=== PATIENT | male | born 1965 | race Caucasian/White ===

== ENCOUNTER 2018-04-04 10:28 | Day surgery (SDC) | payer MEDICARE ==
[2018-04-04] MEDS ORDERED: Midazolam HCl 2 mg/2 ml Vial ONE (12:20)
[2018-04-04] MEDS ORDERED: Fentanyl 100 MCG/2 ML VIAL ONE (12:20)
[2018-04-04] MEDS ORDERED: Ketamine 50 MG/ML VIAL ONE (12:20)
[2018-04-04] MEDS ORDERED: CEFAZOLIN 2 GM/50 ML BAG ONE (12:31)
[2018-04-04 12:50] LABS: Hemoglobin 9.9 g/dL (14.0-18.0); Mean Corpuscular HGB CONC 32.2 g/dL (32.0-36.0); Mean Corpuscular Hemoglobin 31.4 pg (27.0-31.0); Mean Corpuscular Volume 97.4 fL (78.0-98.0); Mean Platelet Volume 8.7 fL (7.4-10.4); Platelet Count 171 thou/uL (130-400); RBC Distribution Width 15.4 % (11.5-14.5); Red Blood Cell (RBC) Count 3.15 mill/uL (4.70-6.10); White Blood Cell (WBC) Count 7.1 thou/uL (4.8-10.8)
[2018-04-04 13:11] LABS: Anion Gap 18 mmol/L (10-20); BUN (Urea Nitrogen) 90 mg/dL (8.4-25.7); Calc. Creatinine Clearance 0 mL/min (70-130); Calcium 7.9 mg/dL (7.8-10.44); Carbon Dioxide 19 mmol/L (22-29); Chloride 105 mmol/L (98-107); Estimated GFR-MDRD 4; Glucose 81 mg/dL (70-105); Sodium 135 mmol/L (136-145); Uric Acid 12.7 mg/dL (3.5-7.2)
[2018-04-04 13:16] LABS: Potassium 6.6 mmol/L (3.5-5.1)
--- NOTE | 2018-04-04 13:51 | OP ---
PROCEDURE: Completion amputation of right 4th and 5th digits. PREOPERATIVE DIAGNOSIS: Right partial amputation in injury to the 4th and 5th digits. POSTOPERATIVE DIAGNOSIS: Right partial amputation in injury to the 4th and 5th digits. COMPLICATIONS: None. ESTIMATED BLOOD LOSS: Minimal. SURGEON: Lamberto Call M.D. IMPLANTS: None. INDICATIONS FOR PROCEDURE: Mr. Franz is a 52-year-old male who injured his hand with a saw. His rig ht fourth and fifth digits were injured. He was indicated for partial amputation to cover his bone a nd prevent infection. Risks have been reviewed in detail. He elected to proceed with the operation. DESCRIPTION OF OPERATION: Mr. Franz was identified in the preoperative holding area. His correct ex tremity was marked. He was carried to the operating room. He was positioned supine. General anesth esia was induced. A multidisciplinary timeout was performed. The right upper extremity was prepped and draped in sterile fashion. We performed a digital block. At this point, we began with the 5th d igit. We trimmed the skin edges and removed any nonviable tissue. The distal fingertip was nonviabl e. We excisionally debrided the fingertip. We then rongeured back the bone. Most of the distal pha lanx was removed. We excised the germinal matrix of the nail bed. At this point, we thoroughly irri gated with copious lavage. We then loosely closed it with a 4-0 nylon suture in interrupted fashion. At this point, we moved to the fourth digit. We performed a similar procedure. We removed nonviable tissue sharply as well as performed an excisional debridement. We then thoroughly irrigated with co pious lavage. We removed the distal aspect of the bone back to the point where there was coverage. We then closed with a 4-0 nylon suture. A sterile dressing was applied. The patient was taken to [facility] recovery room in good condition without complication.
[2018-04-04] MEDS ORDERED: Lidocaine 1% PF 5 ML VIAL ONE (15:14)
[2018-04-04] MEDS ORDERED: PROPOFOL 200 MG/20 ML VIAL ONE (15:14)
== END 2018-04-04 14:25 | disposition home or self-care (01) ==
LOC: SDC 10:28
PROVIDERS: ATTEND Orthopaedic Surgery
PROC: 0HBQXZZ Excision of Finger Nail, External Approach (ICD-10-PCS; principal; 2018-04-04)
PROC: 0PBT0ZZ Excision of Right Finger Phalanx, Open Approach (ICD-10-PCS; 2018-04-04)
PROC: 0PBT0ZZ Excision of Right Finger Phalanx, Open Approach (ICD-10-PCS; 2018-04-04)
DX: S68.624A Partial traumatic transphalangeal amputation of right ring finger, initial encounter (principal); S68.626A Partial traumatic transphalangeal amputation of right little finger, initial encounter; Z79.899 Other long term (current) drug therapy; W27.0XXA Contact with workbench tool, initial encounter
CPT/HCPCS: 36415; 80048; 84550; 85027; J2001; J2250; J2704; J3010

== ENCOUNTER 2018-11-14 09:28 | Outpatient (CLI) | payer MEDICARE ==
--- NOTE | 2018-11-14 12:06 | ULT ---
RENAL ULTRASOUND: DATE: 11/14/2018. PROVIDED CLINICAL HISTORY: [id number]. FINDINGS: The right kidney measures approximately 9.8 x 4.6 x 5.1 cm and demonstrates multiple anechoic to hypo echoic masses, several of which demonstrate multiple internal septations. There is no evidence for h ydronephrosis. Foci of increased echogenicity involve the right kidney with associated twinkle artif act compatible with calculi. The left kidney measures approximately 10.6 x 4.3 x 6.6 cm and demonstrates no evidence for hydroneph rosis. Multiple left renal calculi are seen. Foci of diminished echogenicity involving the left kid kylah are noted with internal septations. The largest of these measures about 2.5 cm. The urinary bladder appears sonographically unremarkable. IMPRESSION: 1. Bilateral nonobstructing nephrolithiasis. 2. Bilateral renal masses, incompletely characterized sonographically, potentially reflecting comple x cysts. Consider further evaluation with CT of the abdomen with and without IV contrast. POS: [facility]
== END 2018-11-14 09:29 | disposition home or self-care (01) ==
LOC: ULT 09:28
PROVIDERS: ATTEND Internal Medicine Nephrology
DX: R31.0 Gross hematuria (principal); N20.0 Calculus of kidney; N28.89 Other specified disorders of kidney and ureter
CPT/HCPCS: 76770

== ENCOUNTER 2018-11-18 14:04 | Outpatient (CLI) | payer MEDICARE ==
[~2018-11-18 14:04] MED LIST: ISOVUE-370 76%-LOCM 1 ML ONE
--- NOTE | 2018-11-18 14:55 | CT ---
CT Abdomen W WO Con HISTORY: Patient had gross hematuria last week. Ultrasound examination showed bilateral renal lesions incompletely characterized for which CT was recommended. COMPARISON: Ultrasound examination of 11/14/2018. FINDINGS: The lung bases are clear. The liver shows no focal abnormalities. The spleen measures appro ximately 14 cm in length. The pancreas region is unremarkable. A large gallstone is present. Right and left adrenal glands are normal in appearance. There is an exophytic slightly hyperdense 3.8 cm right renal lesion which does not show any contrast enhancement. It does have a subtle focus of calcification along the wall there are multiple other hypodense lesions also not showing contrast enh ancement. Lesser changes are seen on the left side again without any definite findings of enhancement. Some of these have CT Hounsfield unit numbers higher than typical cyst but are felt most likely to represent complex cysts. No significant periaortic or mesenteric adenopathy is noted. IMPRESSION: 1. Large gallstone. 2. Nonhealing hand seen mainly hypodense masses involving both kidneys. Although some of these do not show definite cyst characteristics the lack of enhancement would suggest that these represent complex cyst. 3. Mild splenomegaly.
== END 2018-11-18 14:05 | disposition home or self-care (01) ==
LOC: BICCT 14:04
PROVIDERS: ATTEND Internal Medicine Nephrology
DX: N18.6 End stage renal disease (principal); N28.89 Other specified disorders of kidney and ureter; K80.20 Calculus of gallbladder without cholecystitis without obstruction; R16.1 Splenomegaly, not elsewhere classified
CPT/HCPCS: 74170; Q9966

== ENCOUNTER 2020-08-14 11:25 | Inpatient (IN) | payer MEDICARE ==
[~2020-08-14 11:25] MED LIST changes: +Heparin 10,000 UNITS/ 10 ML VIAL ONE; -ISOVUE-370 76%-LOCM 1 ML ONE
[2020-08-14 13:04] LABS: #Eosinphils 0.5 thou/uL (0.0-0.7); #Lymphocytes 1.4 thou/uL (1.20-3.40); #Monocytes 0.9 thou/uL (0.11-0.59); #Neutrophils 5.1 thou/uL (1.40-6.50); %Basophils 0.6 % (0.0-1.0); %Eosinophils 5.7 % (0.0-10.0); %Lymphocytes 17.1 % (21.0-51.0); %Monocytes 11.8 % (0.0-10.0); %Neutrophils 64.8 % (42.0-75.0); Hemoglobin 9.8 g/dL (14.0-18.0); Mean Corpuscular HGB CONC 32.2 g/dL (32.0-36.0); Mean Corpuscular Hemoglobin 26.7 pg (27.0-31.0); Mean Corpuscular Volume 82.7 fL (78.0-98.0); Mean Platelet Volume 9.5 fL (7.4-10.4); Platelet Count 152 thou/uL (130-400); RBC Distribution Width 16.1 % (11.5-14.5); Red Blood Cell (RBC) Count 3.68 mill/uL (4.70-6.10); White Blood Cell (WBC) Count 7.9 thou/uL (4.8-10.8)
[2020-08-14 13:33] LABS: ALT (SGPT) 14 U/L (8-55); AST (SGOT) 15 U/L (5-34); Albumin 2.7 g/dL (3.5-5.0); Alkaline Phosphatase 81 U/L (40-110); Anion Gap 30 mmol/L (10-20); Bilirubin, Total 0.3 mg/dL (0.2-1.2); Calc. Creatinine Clearance 0 mL/min (70-130); Chloride 103 mmol/L (98-107); Globulin 2.8 g/dL (2.4-3.5); Glucose 88 mg/dL (70-105); Potassium 4.9 mmol/L (3.5-5.1); Protein, Total 5.5 g/dL (6.0-8.3); Sodium 136 mmol/L (136-145)
[2020-08-14 13:57] LABS: CKMB 8.3 ng/mL (0-6.6); Calcium 5.6 mg/dL (7.8-10.44); Carbon Dioxide 8 mmol/L (22-29)
[2020-08-14 14:02] LABS: Phosphorus Greater than 19.0 mg/dL (2.3-4.7)
[2020-08-14 14:27] LABS: BUN (Urea Nitrogen) 164 mg/dL (8.4-25.7)
[2020-08-14] MEDS ORDERED: Heparin 1,000 UNITS/ML VIAL ONE (14:32)
[2020-08-14 16:09] LABS: HBSAg Index 0.16 S/CO (0-0.99); Hep B Surf Ag Non-Reactive S/CO (NonReactive)
[2020-08-14] MEDS ORDERED: Sevelamer Carbonate 800 MG TAB PO SCH (17:00)
[2020-08-14] MEDS ORDERED: Atropine Sulfate 1 mg/10 ml Syringe IVP PRN (17:52)
[2020-08-14] MEDS ORDERED: EPOETIN ALFA-EPBX (ESRD) 4,000 UNIT/ML VIAL SC SCH (18:00)
[2020-08-14] MEDS ORDERED: Ondansetron ODT 4 MG TAB PO PRN (18:24)
[2020-08-14] MEDS ORDERED: Senokot S 8.6-50 MG TAB PO PRN (18:24)
[2020-08-14] MEDS ORDERED: Ondansetron PF 4 MG/2 ML Vial IVP PRN (18:24)
[2020-08-14] MEDS ORDERED: Dextrose 5% in Water 500 ML IV SCH (18:30)
[2020-08-14] MEDS ORDERED: Nitroglycerin 0.4 MG TAB (25 Tab Bottle) SL PRN (18:56)
[2020-08-14] MEDS: Famotidine/PF 20 mg/2ml Vial SLOW IVP SCH (21:55)
[2020-08-14] MEDS: Famotidine 20 MG TAB PO SCH (21:55)
[2020-08-14] MEDS: Nitroglycerin 2% Ointment 1 INCH/1 GM Packet TOP SCH (21:55)
[2020-08-14] MEDS: Acetaminophen 325 MG TAB PO PRN (22:40)
[2020-08-14] MEDS ORDERED: Dextrose 50% Abboject 50 ML SYRINGE SLOW IVP PRN (23:47)
[2020-08-14] MEDS ORDERED: Dextrose 5% in Water 1,000 ML IV PRN (23:47)
[2020-08-14] MEDS ORDERED: HumaLOG 300 UNITS/3 ML VIAL SC PRN ×2 (23:47)
[2020-08-15] MEDS ORDERED: hydrALAZINE 20 MG/ML VIAL SLOW IVP PRN (01:51)
[2020-08-15 04:30] LABS: Anion Gap 21 mmol/L (10-20); BUN (Urea Nitrogen) 76 mg/dL (8.4-25.7); Calc. Creatinine Clearance 8 mL/min (70-130); Calcium 6.1 mg/dL (7.8-10.44); Carbon Dioxide 17 mmol/L (22-29); Chloride 103 mmol/L (98-107); Glucose 86 mg/dL (70-105); Phosphorus 11.3 mg/dL (2.3-4.7); Potassium 3.5 mmol/L (3.5-5.1); Sodium 137 mmol/L (136-145)
[2020-08-15 04:32] LABS: Hemoglobin 8.6 g/dL (14.0-18.0); Mean Corpuscular HGB CONC 33.8 g/dL (32.0-36.0); Mean Corpuscular Hemoglobin 27.8 pg (27.0-31.0); Mean Corpuscular Volume 82.3 fL (78.0-98.0); RBC Distribution Width 15.9 % (11.5-14.5); Red Blood Cell (RBC) Count 3.09 mill/uL (4.70-6.10); White Blood Cell (WBC) Count 4.4 thou/uL (4.8-10.8)
[2020-08-15 04:39] LABS: CKMB 5.6 ng/mL (0-6.6)
[2020-08-15 04:53] LABS: #Eosinphils 0.1 thou/uL (0.0-0.7); #Lymphocytes 0.6 thou/uL (1.20-3.40); #Monocytes 0.5 thou/uL (0.11-0.59); #Neutrophils 3.2 thou/uL (1.40-6.50); %Basophils 0.1 % (0.0-1.0); %Eosinophils 2.9 % (0.0-10.0); %Neutrophils 72.9 % (42.0-75.0); Anisocytosis SLIGHT = 6-15 cells (100X) (0-5/hpf); MDiff Complete? YES; Mean Platelet Volume 9.4 fL (7.4-10.4); Ovalocytes SLIGHT = 2-5 cells (100X) (0-1/hpf); Platelet Count 116 thou/uL (130-400); Platelet Morphology Comment Appears Decreased; Tear Drops SLIGHT = 2-5 cells (100X) (0-1/hpf)
[2020-08-15] MEDS: Nitroglycerin 2% Ointment 1 INCH/1 GM Packet TOP SCH ×3 (06:09→21:03)
[2020-08-15] MEDS: Calcium Acetate 667 MG CAP PO SCH ×3 (09:12→16:47)
[2020-08-15] MEDS: Aspirin 81 mg Enteric Coated Tablet PO SCH (09:12)
[2020-08-15] MEDS: Acetaminophen 325 MG TAB PO PRN (09:13)
[2020-08-15] MEDS ORDERED: Heparin 10,000 UNITS/ 10 ML VIAL ONE (10:00)
[2020-08-15] MEDS: EPOETIN ALFA-EPBX (ESRD) 4,000 UNIT/ML VIAL SC SCH (10:27)
[2020-08-15] MEDS ORDERED: CEFAZOLIN 2 GM in Premix Bag 1 BAG IVPB SCH (12:00)
[2020-08-15] MEDS ORDERED: Iopamidol 300 61% 100 ML VIAL FS ONE (15:00)
[2020-08-15] MEDS ORDERED: Amlodipine 5 MG TAB PO SCH (16:30)
[2020-08-15] MEDS: Famotidine/PF 20 mg/2ml Vial SLOW IVP SCH (21:03)
[2020-08-15] MEDS: Famotidine 20 MG TAB PO SCH (21:03)
[2020-08-16 05:12] LABS: SARS-CoV-2 PCR by NAA Not Detected (NotDetected)
[2020-08-16] MEDS: Nitroglycerin 2% Ointment 1 INCH/1 GM Packet TOP SCH ×3 (06:02→21:27)
[2020-08-16] MEDS: Calcitriol 0.25 MCG CAP PO SCH (08:25)
[2020-08-16] MEDS: Aspirin 81 mg Enteric Coated Tablet PO SCH (08:25)
[2020-08-16] MEDS: Calcium Acetate 667 MG CAP PO SCH ×3 (08:31→19:05)
[2020-08-16] MEDS ORDERED: Metoprolol Tartrate 50 MG TAB PO SCH (09:00)
[2020-08-16] MEDS: Amlodipine 5 MG TAB PO SCH (09:07)
[2020-08-16] MEDS ORDERED: Sodium Chloride 0.9% 0 ML ONE (17:25)
[2020-08-16] MEDS ORDERED: Protamine Sulfate 50 MG/5 ML VIAL ONE (17:25)
[2020-08-16] MEDS ORDERED: Bupivacaine PF 0.5% 30 ML VIAL ONE (17:25)
[2020-08-16] MEDS ORDERED: Ioversol 68 % 50 ML VIAL ONE (17:25)
[2020-08-16] MEDS ORDERED: Heparin 5,000 UNITS/ML VIAL ONE (17:25)
[2020-08-16] MEDS ORDERED: Lidocaine 1% w/Epinephrine 1:100K 20 ML VIAL ONE (17:25)
[2020-08-16] MEDS ORDERED: Lidocaine 2% PF 5 ML VIAL ONE (17:25)
[2020-08-16] MEDS ORDERED: Heparin 10,000 UNITS/ 10 ML VIAL ONE (17:25)
[2020-08-16] MEDS: Famotidine 20 MG TAB PO SCH (20:51)
[2020-08-16] MEDS: Famotidine/PF 20 mg/2ml Vial SLOW IVP SCH (20:52)
[2020-08-17 05:24] LABS: #Basophils 0.1 thou/uL (0.0-0.2); #Eosinphils 0.3 thou/uL (0.0-0.7); #Lymphocytes 0.7 thou/uL (1.20-3.40); #Neutrophils 6.6 thou/uL (1.40-6.50); %Basophils 0.7 % (0.0-1.0); %Eosinophils 3.5 % (0.0-10.0); %Lymphocytes 8.1 % (21.0-51.0); %Monocytes 11.5 % (0.0-10.0); %Neutrophils 76.1 % (42.0-75.0); Hemoglobin 8.5 g/dL (14.0-18.0); Mean Corpuscular HGB CONC 30.7 g/dL (32.0-36.0); Mean Corpuscular Hemoglobin 25.5 pg (27.0-31.0); Mean Corpuscular Volume 83.1 fL (78.0-98.0); Mean Platelet Volume 9.7 fL (7.4-10.4); Platelet Count 124 thou/uL (130-400); RBC Distribution Width 15.2 % (11.5-14.5); Red Blood Cell (RBC) Count 3.32 mill/uL (4.70-6.10); White Blood Cell (WBC) Count 8.7 thou/uL (4.8-10.8)
[2020-08-17 05:43] LABS: Phosphorus 5.4 mg/dL (2.3-4.7)
[2020-08-17 05:46] LABS: Anion Gap 15 mmol/L (10-20); BUN (Urea Nitrogen) 26 mg/dL (8.4-25.7); Calc. Creatinine Clearance 14 mL/min (70-130); Calcium 6.9 mg/dL (7.8-10.44); Carbon Dioxide 25 mmol/L (22-29); Chloride 101 mmol/L (98-107); Glucose 91 mg/dL (70-105); Potassium 3.1 mmol/L (3.5-5.1); Sodium 138 mmol/L (136-145)
[2020-08-17] MEDS: Nitroglycerin 2% Ointment 1 INCH/1 GM Packet TOP SCH ×2 (06:17→13:12)
[2020-08-17] MEDS: Aspirin 81 mg Enteric Coated Tablet PO SCH (09:15)
[2020-08-17] MEDS: Calcium Acetate 667 MG CAP PO SCH ×3 (09:15→15:52)
[2020-08-17] MEDS: Calcitriol 0.25 MCG CAP PO SCH (09:16)
[2020-08-17] MEDS: Amlodipine 5 MG TAB PO SCH (09:16)
[2020-08-17] MEDS: Metoprolol Tartrate 50 MG TAB PO SCH (20:34)
[2020-08-17] MEDS: Famotidine 20 MG TAB PO SCH (20:34)
[2020-08-17] MEDS: Famotidine/PF 20 mg/2ml Vial SLOW IVP SCH (20:34)
[2020-08-18 05:28] LABS: Anion Gap 17 mmol/L (10-20); BUN (Urea Nitrogen) 35 mg/dL (8.4-25.7); Calc. Creatinine Clearance 11 mL/min (70-130); Calcium 7.1 mg/dL (7.8-10.44); Carbon Dioxide 23 mmol/L (22-29); Chloride 96 mmol/L (98-107); Glucose 86 mg/dL (70-105); Potassium 3.3 mmol/L (3.5-5.1); Sodium 133 mmol/L (136-145)
[2020-08-18 06:02] LABS: Eosinophils 3 % (0-10); Hemoglobin 8.5 g/dL (14.0-18.0); Lymphocytes 10 % (21-51); MDiff Complete? YES; Mean Corpuscular HGB CONC 30.8 g/dL (32.0-36.0); Mean Corpuscular Hemoglobin 25.5 pg (27.0-31.0); Mean Corpuscular Volume 82.8 fL (78.0-98.0); Mean Platelet Volume 9.5 fL (7.4-10.4); Monocytes 14 % (0-10); Neutrophil 73 % (42-75); Nucleated RBC 1 % (0); Platelet Count 136 thou/uL (130-400); Platelet Morphology Comment Appears Adequate; RBC Distribution Width 15.5 % (11.5-14.5); Red Blood Cell (RBC) Count 3.35 mill/uL (4.70-6.10); White Blood Cell (WBC) Count 7.2 thou/uL (4.8-10.8)
[2020-08-18] MEDS: hydrALAZINE 25 MG TAB PO SCH ×3 (09:26→20:34)
[2020-08-18] MEDS: Calcitriol 0.25 MCG CAP PO SCH (09:28)
[2020-08-18] MEDS: Metoprolol Tartrate 50 MG TAB PO SCH ×2 (09:28→20:34)
[2020-08-18] MEDS: Amlodipine 5 MG TAB PO SCH (09:28)
[2020-08-18] MEDS: Calcium Acetate 667 MG CAP PO SCH ×3 (09:29→16:28)
[2020-08-18] MEDS: Aspirin 81 mg Enteric Coated Tablet PO SCH (09:29)
[2020-08-18] MEDS: Famotidine 20 MG TAB PO SCH (20:34)
[2020-08-18] MEDS: Famotidine/PF 20 mg/2ml Vial SLOW IVP SCH (20:35)
[2020-08-19 04:35] LABS: Hemoglobin 9.7 g/dL (14.0-18.0); Mean Corpuscular HGB CONC 31.8 g/dL (32.0-36.0); Mean Corpuscular Hemoglobin 26.2 pg (27.0-31.0); Mean Corpuscular Volume 82.5 fL (78.0-98.0); Mean Platelet Volume 9.7 fL (7.4-10.4); Platelet Count 174 thou/uL (130-400); RBC Distribution Width 15.8 % (11.5-14.5); White Blood Cell (WBC) Count 10.3 thou/uL (4.8-10.8)
[2020-08-19 04:51] LABS: Band 15 % (5-11); Eosinophils 6 % (0-10); Lymphocytes 6 % (21-51); MDiff Complete? YES; Monocytes 17 % (0-10); Neutrophil 54 % (42-75); Nucleated RBC 1 % (0); Platelet Morphology Comment Appears Adequate; Reactive Lymphocytes 2 % (0-10)
[2020-08-19 04:54] LABS: Anion Gap 20 mmol/L (10-20); BUN (Urea Nitrogen) 48 mg/dL (8.4-25.7); Calc. Creatinine Clearance 9 mL/min (70-130); Calcium 7.3 mg/dL (7.8-10.44); Carbon Dioxide 20 mmol/L (22-29); Chloride 95 mmol/L (98-107); Glucose 78 mg/dL (70-105); Potassium 3.5 mmol/L (3.5-5.1); Sodium 131 mmol/L (136-145)
[2020-08-19 04:55] LABS: Phosphorus 6.7 mg/dL (2.3-4.7)
[2020-08-19] MEDS: Calcium Acetate 667 MG CAP PO SCH ×3 (08:10→17:08)
[2020-08-19] MEDS: Amlodipine 10 MG TAB PO SCH ×2 (08:10→17:08)
[2020-08-19] MEDS: Aspirin 81 mg Enteric Coated Tablet PO SCH (08:10)
[2020-08-19] MEDS: Calcitriol 0.25 MCG CAP PO SCH ×2 (08:11→17:07)
[2020-08-19] MEDS: Metoprolol Tartrate 50 MG TAB PO SCH ×2 (08:11→21:05)
[2020-08-19] MEDS: hydrALAZINE 25 MG TAB PO SCH ×3 (08:11→21:05)
[2020-08-19] MEDS ORDERED: Fentanyl 100 MCG/2 ML VIAL ONE (14:23)
[2020-08-19] MEDS ORDERED: PROPOFOL 40 ML ONE (14:23)
[2020-08-19] MEDS ORDERED: XYLOCAINE 2%-EPI 1:100,000 20 ML VIAL ONE (14:28)
[2020-08-19] MEDS ORDERED: Bupivacaine PF 0.5% 30 ML VIAL ONE (14:28)
[2020-08-19] MEDS ORDERED: Sodium Chloride 0.9% 20 ML ONE (14:29)
[2020-08-19] MEDS ORDERED: Heparin 10,000 UNITS/ 10 ML VIAL ONE (15:03)
[2020-08-19] MEDS ORDERED: Promethazine HCl 25 MG/ML VIAL IM PRN (15:28)
[2020-08-19] MEDS ORDERED: Ondansetron HCl/PF 4 MG/2 ML Vial IVP PRN (15:28)
[2020-08-19] MEDS ORDERED: Promethazine HCl 25 MG/ML VIAL SLOW IVP PRN (15:28)
[2020-08-19] MEDS: Famotidine 20 MG TAB PO SCH (21:05)
[2020-08-19] MEDS: Famotidine/PF 20 mg/2ml Vial SLOW IVP SCH (21:06)
[2020-08-20 04:32] LABS: #Eosinphils 0.4 thou/uL (0.0-0.7); #Lymphocytes 0.7 thou/uL (1.20-3.40); #Monocytes 1.4 thou/uL (0.11-0.59); #Neutrophils 7.6 thou/uL (1.40-6.50); %Basophils 0.1 % (0.0-1.0); %Eosinophils 3.5 % (0.0-10.0); %Lymphocytes 6.7 % (21.0-51.0); %Monocytes 14.2 % (0.0-10.0); %Neutrophils 75.5 % (42.0-75.0); Hemoglobin 8.6 g/dL (14.0-18.0); Mean Corpuscular HGB CONC 31.7 g/dL (32.0-36.0); Mean Corpuscular Hemoglobin 26.2 pg (27.0-31.0); Mean Corpuscular Volume 82.6 fL (78.0-98.0); Platelet Count 176 thou/uL (130-400); RBC Distribution Width 15.7 % (11.5-14.5); Red Blood Cell (RBC) Count 3.28 mill/uL (4.70-6.10); White Blood Cell (WBC) Count 10.1 thou/uL (4.8-10.8)
[2020-08-20 04:46] LABS: Anion Gap 16 mmol/L (10-20); BUN (Urea Nitrogen) 40 mg/dL (8.4-25.7); Calc. Creatinine Clearance 12 mL/min (70-130); Calcium 7.1 mg/dL (7.8-10.44); Carbon Dioxide 24 mmol/L (22-29); Chloride 101 mmol/L (98-107); Glucose 89 mg/dL (70-105); Potassium 3.9 mmol/L (3.5-5.1); Sodium 137 mmol/L (136-145)
[2020-08-20] MEDS: Aspirin 81 mg Enteric Coated Tablet PO SCH (08:57)
[2020-08-20] MEDS: Calcium Acetate 667 MG CAP PO SCH ×3 (08:57→15:34)
[2020-08-20] MEDS: Metoprolol Tartrate 50 MG TAB PO SCH ×2 (08:57→21:39)
[2020-08-20] MEDS: Calcitriol 0.25 MCG CAP PO SCH (08:57)
[2020-08-20] MEDS: hydrALAZINE 25 MG TAB PO SCH ×3 (08:58→21:39)
[2020-08-20] MEDS: Famotidine 20 MG TAB PO SCH (21:38)
[2020-08-20] MEDS: Famotidine/PF 20 mg/2ml Vial SLOW IVP SCH (21:39)
[2020-08-21 04:46] LABS: Anion Gap 13 mmol/L (10-20); BUN (Urea Nitrogen) 33 mg/dL (8.4-25.7); Calc. Creatinine Clearance 13 mL/min (70-130); Calcium 7.3 mg/dL (7.8-10.44); Carbon Dioxide 26 mmol/L (22-29); Chloride 100 mmol/L (98-107); Glucose 90 mg/dL (70-105); Phosphorus 5.1 mg/dL (2.3-4.7); Potassium 3.7 mmol/L (3.5-5.1); Sodium 135 mmol/L (136-145)
[2020-08-21 04:52] LABS: Band 9 % (5-11); Eosinophils 5 % (0-10); Hemoglobin 7.8 g/dL (14.0-18.0); Lymphocytes 8 % (21-51); MDiff Complete? YES; Mean Corpuscular HGB CONC 31.9 g/dL (32.0-36.0); Mean Corpuscular Hemoglobin 26.5 pg (27.0-31.0); Mean Corpuscular Volume 83.1 fL (78.0-98.0); Mean Platelet Volume 8.8 fL (7.4-10.4); Monocytes 19 % (0-10); Neutrophil 58 % (42-75); Platelet Count 165 thou/uL (130-400); Platelet Morphology Comment Appears Adequate; RBC Distribution Width 15.5 % (11.5-14.5); Reactive Lymphocytes 1 % (0-10); Red Blood Cell (RBC) Count 2.95 mill/uL (4.70-6.10); White Blood Cell (WBC) Count 6.6 thou/uL (4.8-10.8)
[2020-08-21] MEDS: Colchicine 0.6 MG TAB PO SCH (09:04)
[2020-08-21] MEDS: Aspirin 81 mg Enteric Coated Tablet PO SCH (09:04)
[2020-08-21] MEDS: Calcitriol 0.25 MCG CAP PO SCH (09:04)
[2020-08-21] MEDS: Metoprolol Tartrate 50 MG TAB PO SCH ×2 (09:04→20:41)
[2020-08-21] MEDS: Calcium Acetate 667 MG CAP PO SCH ×3 (09:04→16:50)
[2020-08-21] MEDS: Amlodipine 10 MG TAB PO SCH (09:04)
[2020-08-21] MEDS: hydrALAZINE 25 MG TAB PO SCH ×3 (09:05→20:41)
[2020-08-21] MEDS: Famotidine 20 MG TAB PO SCH (20:41)
[2020-08-22] MEDS: Aspirin 81 mg Enteric Coated Tablet PO SCH (09:40)
[2020-08-22] MEDS: Calcium Acetate 667 MG CAP PO SCH ×2 (09:40→12:14)
[2020-08-22] MEDS: Amlodipine 10 MG TAB PO SCH (09:41)
[2020-08-22] MEDS: Colchicine 0.6 MG TAB PO SCH (09:42)
[2020-08-22] MEDS: Calcitriol 0.25 MCG CAP PO SCH (09:42)
[2020-08-22] MEDS: Metoprolol Tartrate 50 MG TAB PO SCH (09:42)
[2020-08-22] MEDS: hydrALAZINE 25 MG TAB PO SCH ×2 (09:48→15:51)
[2020-08-22 10:43] VITALS: BMI 26.0
[2020-08-22] MEDS: EPOETIN ALFA-EPBX (ESRD) 4,000 UNIT/ML VIAL SC SCH (12:01)
[2020-08-22 12:17] VITALS: TEMP 99.3
[2020-08-22 16:44] VITALS: BP 139/76
== END 2020-08-22 16:50 | disposition home or self-care (01) | DRG 640 ==
LOC: ERS 11:25 → 2NO 15:34 → IMCU/EMU 20:33 → 2NO 08-17 16:38
PROVIDERS: ADMIT Internal Medicine; ATTEND Internal Medicine
PROC: 3E1M39Z Irrigation of Peritoneal Cavity using Dialysate, Percutaneous Approach (ICD-10-PCS; 2020-08-14)
PROC: 0JH60XZ Insertion of Tunneled Vascular Access Device into Chest Subcutaneous Tissue and Fascia, Open Approach (ICD-10-PCS; principal; 2020-08-19)
PROC: 02HV33Z Insertion of Infusion Device into Superior Vena Cava, Percutaneous Approach (ICD-10-PCS; 2020-08-19)
PROC: B5181ZA Fluoroscopy of Superior Vena Cava using Low Osmolar Contrast, Guidance (ICD-10-PCS; 2020-08-19)
PROC: B548ZZA Ultrasonography of Superior Vena Cava, Guidance (ICD-10-PCS; 2020-08-19)
PROC: 5A09357 Assistance with Respiratory Ventilation, Less than 24 Consecutive Hours, Continuous Positive Airway Pressure (ICD-10-PCS; 2020-08-21)
DX: E87.70 Fluid overload, unspecified (principal); N18.6 End stage renal disease; G93.49 Other encephalopathy; N25.81 Secondary hyperparathyroidism of renal origin; I24.8 Other forms of acute ischemic heart disease; E87.2 Acidosis; G47.33 Obstructive sleep apnea (adult) (pediatric); E83.51 Hypocalcemia; E83.39 Other disorders of phosphorus metabolism; R00.1 Bradycardia, unspecified; M10.9 Gout, unspecified; D63.1 Anemia in chronic kidney disease; Z20.822 Contact with and (suspected) exposure to COVID-19; F41.9 Anxiety disorder, unspecified; Z99.2 Dependence on renal dialysis; Z99.89 Dependence on other enabling machines and devices; Z91.15 Patient's noncompliance with renal dialysis
CPT/HCPCS: 36415; 36416; 36556; 36901; 71045; 80048; 80053; 82550; 82553; 83735; 83970; 84100; 84484; 85025; 87340; 87635; 90935; 93005; 93010; 93306; 93970; 94660; 94760; C1751; C1752; G0257; J0690; J1642; J1644; J2001; J2704; J2720; J3010; Q5105; Q9967; S0020; S0028; U0003; U0005

== ENCOUNTER 2020-10-31 11:19 | Outpatient (CLI) | payer MEDICARE | END 2020-10-31 11:20 | disposition home or self-care (01) | LOC: LABBT 11:19 | PROVIDERS: ATTEND Specialist | DX: Z01.812 Encounter for preprocedural laboratory examination (principal); N18.6 End stage renal disease; Z20.822 Contact with and (suspected) exposure to COVID-19 | CPT/HCPCS: U0003; U0005 ==

== ENCOUNTER 2020-11-05 10:28 | Day surgery (SDC) | payer MEDICARE ==
[2020-11-04 11:20] VITALS: BMI 26.2
[2020-11-05] MEDS ORDERED: Lidocaine 1% w/Epinephrine 1:100K 20 ML VIAL ONE (11:28)
[2020-11-05] MEDS ORDERED: Bupivacaine 0.25% HCL 30 ML VIAL ONE (11:28)
[2020-11-05] MEDS ORDERED: Propofol 500 MG/50 ML VIAL ONE (11:56)
[2020-11-05] MEDS ORDERED: Fentanyl 100 MCG/2 ML VIAL ONE (11:56)
[2020-11-05] MEDS ORDERED: Ondansetron PF 4 MG/2 ML Vial ONE (13:03)
== END 2020-11-05 14:05 | disposition home or self-care (01) ==
LOC: SDC 10:28
PROVIDERS: ATTEND Specialist
PROC: 0WPG03Z Removal of Infusion Device from Peritoneal Cavity, Open Approach (ICD-10-PCS; principal; 2020-11-05)
DX: Z49.02 Encounter for fitting and adjustment of peritoneal dialysis catheter (principal); N18.6 End stage renal disease; G47.30 Sleep apnea, unspecified; M10.9 Gout, unspecified; F17.290 Nicotine dependence, other tobacco product, uncomplicated; Z79.82 Long term (current) use of aspirin; Z79.899 Other long term (current) drug therapy; Z88.1 Allergy status to other antibiotic agents
CPT/HCPCS: J0690; J2405; J2704; J3010; S0020

== ENCOUNTER 2020-12-27 07:03 | Inpatient (IN) | payer MEDICARE ==
[2020-12-27] MEDS ORDERED: Ondansetron PF 4 MG/2 ML Vial ONE (07:38)
[2020-12-27] MEDS ORDERED: Morphine 4 MG/ML VIAL ONE (07:38)
[2020-12-27] MEDS ORDERED: Clindamycin/D5W 900 mg/50 ml Premix Bag ONE (08:22)
[2020-12-27] MEDS ORDERED: Cefepime 2 GM VIAL ONE (08:22)
[2020-12-27] MEDS ORDERED: Vancomycin 1 GM/200 ML BAG ONE (08:22)
[2020-12-27 08:23] LABS: Hemoglobin 11.5 g/dL (14.0-18.0); Mean Corpuscular HGB CONC 33.5 g/dL (32.0-36.0); Mean Corpuscular Hemoglobin 31.8 pg (27.0-31.0); Mean Corpuscular Volume 94.8 fL (78.0-98.0); Mean Platelet Volume 8.2 fL (7.4-10.4); Platelet Count 232 thou/uL (130-400); RBC Distribution Width 17.8 % (11.5-14.5); Red Blood Cell (RBC) Count 3.61 mill/uL (4.70-6.10)
[2020-12-27 08:38] LABS: ALT (SGPT) 31 U/L (8-55); AST (SGOT) 27 U/L (5-34); Albumin 3.9 g/dL (3.5-5.0); Alkaline Phosphatase 118 U/L (40-110); Anion Gap 20 mmol/L (10-20); BUN (Urea Nitrogen) 33 mg/dL (8.4-25.7); Bilirubin, Total 0.6 mg/dL (0.2-1.2); Calc. Creatinine Clearance 0 mL/min (70-130); Calcium 10.1 mg/dL (7.8-10.44); Carbon Dioxide 28 mmol/L (22-29); Chloride 95 mmol/L (98-107); Glucose 98 mg/dL (70-105); Potassium 3.9 mmol/L (3.5-5.1); Protein, Total 7.9 g/dL (6.0-8.3); Sodium 139 mmol/L (136-145)
[2020-12-27 09:03] LABS: MDiff Complete? YES
[2020-12-27 09:04] LABS: Band 25 % (5-11); Lymphocytes 6 % (21-51); Monocytes 8 % (0-10); Neutrophil 61 % (42-75); Platelet Morphology Comment Appears Adequate; Polychromasia SLIGHT = 2-3 cells (100X) (0-2/hpf)
[2020-12-27] MEDS ORDERED: Iopamidol-370 76% 500 ML 1 ML ONE (10:12)
[2020-12-27] MEDS ORDERED: Ondansetron PF 4 MG/2 ML Vial IVP PRN (10:52)
[2020-12-27] MEDS ORDERED: Guaifenesin DM 100-10/5 ML UDCUP PO PRN (10:52)
[2020-12-27] MEDS ORDERED: Calcium Carbonate 500 MG ChewTAB PO PRN (10:52)
[2020-12-27] MEDS ORDERED: Sodium Chloride 0.65% Nasal 44 ML BOT EA NARE PRN (10:52)
[2020-12-27] MEDS ORDERED: Loratadine 10 MG TAB PO PRN (10:52)
[2020-12-27] MEDS ORDERED: Cepastat Lozenges 1 LOZ PO PRN (10:52)
[2020-12-27] MEDS ORDERED: Loperamide HCl 2 MG CAP PO PRN (10:52)
[2020-12-27] MEDS ORDERED: Artificial Tear Sol 15 ML BOT EA EYE PRN (10:52)
[2020-12-27] MEDS ORDERED: Senokot S 8.6-50 MG TAB PO PRN (10:52)
[2020-12-27] MEDS ORDERED: Acetaminophen 325 MG TAB PO PRN (10:52)
[2020-12-27] MEDS ORDERED: Ondansetron ODT 4 MG TAB PO PRN (10:52)
[2020-12-27] MEDS ORDERED: hydrALAZINE 20 MG/ML VIAL SLOW IVP PRN (10:52)
[2020-12-27] MEDS ORDERED: Hydrocerin (Eucerin) Cream 120 gm Jar TOP PRN (10:52)
[2020-12-27] MEDS ORDERED: Bisacodyl 10 MG SUPP PR PRN (10:52)
[2020-12-27 11:48] VITALS: BMI 26.6
[2020-12-27] MEDS: HYDROcodone/Acetaminophen 5/325 mg Tablet PO PRN (12:10)
[2020-12-27] MEDS: Calcium Acetate 667 MG CAP PO SCH ×2 (12:11→17:03)
[2020-12-27] MEDS ORDERED: HOLD VANCOMYCIN FOR LEVEL >20 FS SCH (12:15)
[2020-12-27] MEDS ORDERED: Vancomycin HCl 500 MG in Sodium Chloride 0.9% 100 ML IVPB SCH (12:15)
[2020-12-27] MEDS ORDERED: Vancomycin HCl 250 MG in Sodium Chloride 0.9% 100 ML IVPB SCH (12:15)
[2020-12-27] MEDS ORDERED: Vancomycin 1 GM in Premix Bag 1 BAG IVPB SCH (12:15)
[2020-12-27] MEDS ORDERED: Vancomycin HCl 750 MG in Sodium Chloride 0.9% 250 ML 250 ML IVPB SCH (12:15)
[2020-12-27] MEDS: Ampicillin/Sulbactam 1.5 GM in Sodium Chloride 0.9% 100 ML IVPB SCH (12:52)
[2020-12-27] MEDS: Morphine 2 MG/ML VIAL SLOW IVP PRN ×2 (17:02→23:41)
[2020-12-27] MEDS ORDERED: Zolpidem Tartrate 5 MG TAB PO PRN (21:00)
[2020-12-27] MEDS: Heparin 5,000 UNITS/ML VIAL SC SCH (21:12)
[2020-12-27] MEDS: Chlorhexidine Gluconate 15 ML UDCUP SSP SCH (21:12)
[2020-12-28] MEDS: Ampicillin/Sulbactam 1.5 GM in Sodium Chloride 0.9% 100 ML IVPB SCH ×2 (02:11→12:50)
[2020-12-28 06:07] LABS: Hemoglobin 10.6 g/dL (14.0-18.0); Mean Corpuscular Hemoglobin 30.6 pg (27.0-31.0); Mean Corpuscular Volume 95.6 fL (78.0-98.0); Mean Platelet Volume 7.7 fL (7.4-10.4); Platelet Count 267 thou/uL (130-400); Red Blood Cell (RBC) Count 3.48 mill/uL (4.70-6.10); White Blood Cell (WBC) Count 18.9 thou/uL (4.8-10.8)
[2020-12-28 06:16] LABS: ALT (SGPT) 18 U/L (8-55); AST (SGOT) 19 U/L (5-34); Albumin 3.6 g/dL (3.5-5.0); Alkaline Phosphatase 98 U/L (40-110); Anion Gap 14 mmol/L (10-20); BUN (Urea Nitrogen) 17 mg/dL (8.4-25.7); Bilirubin, Total 0.5 mg/dL (0.2-1.2); Calc. Creatinine Clearance 17 mL/min (70-130); Calcium 9.8 mg/dL (7.8-10.44); Carbon Dioxide 29 mmol/L (22-29); Chloride 95 mmol/L (98-107); Globulin 3.8 g/dL (2.4-3.5); Glucose 99 mg/dL (70-105); Potassium 4.4 mmol/L (3.5-5.1); Protein, Total 7.4 g/dL (6.0-8.3); Sodium 134 mmol/L (136-145)
[2020-12-28 06:58] LABS: Band 17 % (5-11); Eosinophils 4 % (0-10); Lymphocytes 8 % (21-51); MDiff Complete? YES; Monocytes 5 % (0-10); Neutrophil 66 % (42-75)
[2020-12-28] MEDS ORDERED: Lidocaine 2% Jelly 5 ML TUBE ONE (07:32)
[2020-12-28] MEDS ORDERED: Midazolam HCl 2 mg/2 ml Vial ONE (07:32)
[2020-12-28] MEDS ORDERED: AFRIN NASAL MIST 15 ML BOT ONE (07:32)
[2020-12-28] MEDS ORDERED: Fentanyl 100 MCG/2 ML VIAL ONE (07:32)
[2020-12-28] MEDS ORDERED: Hydrocortisone 1% Cream 30 GM TUBE ONE (07:43)
[2020-12-28] MEDS ORDERED: Chlorhexidine Gluconate 15 ML UDCUP SSP ONE (07:43)
[2020-12-28] MEDS ORDERED: Lidocaine 1% w/Epinephrine 1:100K 20 ML VIAL ONE (07:43)
[2020-12-28] MEDS ORDERED: Neomycin-Polymyxin 1 ML AMP ONE (07:49)
[2020-12-28] MEDS ORDERED: Rocuronium Bromide 10 MG/ML (10ML VIAL) ONE (08:20)
[2020-12-28] MEDS ORDERED: Ondansetron PF 4 MG/2 ML Vial ONE (08:20)
[2020-12-28] MEDS ORDERED: PROPOFOL 200 MG/20 ML VIAL ONE (08:20)
[2020-12-28] MEDS ORDERED: Glycopyrrolate 0.2 MG/ML 5 ML SYRINGE ONE (08:20)
[2020-12-28] MEDS ORDERED: PHENYLEPHRINE-NS 100 MCG/ML 10 ML SYRINGE ONE (08:20)
[2020-12-28] MEDS ORDERED: Lidocaine 1% PF 5 ML VIAL ONE (08:20)
[2020-12-28] MEDS: Heparin 5,000 UNITS/ML VIAL SC SCH (08:43)
[2020-12-28] MEDS: Calcium Acetate 667 MG CAP PO SCH ×3 (08:43→14:22)
[2020-12-28] MEDS: Folic Acid/Vit B Comp W-C PO SCH (08:43)
[2020-12-28] MEDS: Amlodipine 10 MG TAB PO SCH (08:43)
[2020-12-28] MEDS ORDERED: Ondansetron HCl/PF 4 MG/2 ML Vial IVP PRN (08:44)
[2020-12-28] MEDS ORDERED: Promethazine HCl 25 MG/ML VIAL IM PRN (08:44)
[2020-12-28] MEDS ORDERED: Promethazine HCl 25 MG/ML VIAL IVPB PRN (08:44)
[2020-12-28] MEDS: Aspirin 81 mg Enteric Coated Tablet PO SCH (08:44)
[2020-12-28] MEDS ORDERED: Clindamycin/D5W 600 mg/50 ml Premix Bag ONE (08:54)
[2020-12-28] MEDS ORDERED: SUGAMMADEX SODIUM 200 MG/2 ML VIAL ONE (09:14)
[2020-12-28] MEDS: Chlorhexidine Gluconate 15 ML UDCUP SSP SCH ×2 (11:14→20:49)
[2020-12-28] MEDS: Morphine 2 MG/ML VIAL SLOW IVP PRN ×3 (11:25→20:49)
[2020-12-28] MEDS ORDERED: Vancomycin HCl 500 MG in Sodium Chloride 0.9% 100 ML IVPB SCH (14:00)
[2020-12-29] MEDS: Morphine 2 MG/ML VIAL SLOW IVP PRN ×3 (00:37→21:20)
[2020-12-29] MEDS: Ampicillin/Sulbactam 1.5 GM in Sodium Chloride 0.9% 100 ML IVPB SCH ×2 (00:37→12:06)
[2020-12-29 06:31] LABS: Anion Gap 19 mmol/L (10-20); BUN (Urea Nitrogen) 33 mg/dL (8.4-25.7); Calc. Creatinine Clearance 12 mL/min (70-130); Calcium 9.7 mg/dL (7.8-10.44); Carbon Dioxide 26 mmol/L (22-29); Chloride 95 mmol/L (98-107); Glucose 93 mg/dL (70-105); Sodium 135 mmol/L (136-145)
[2020-12-29 06:47] LABS: Hemoglobin 9.9 g/dL (14.0-18.0); Mean Corpuscular HGB CONC 33.1 g/dL (32.0-36.0); Mean Corpuscular Hemoglobin 31.8 pg (27.0-31.0); Mean Corpuscular Volume 95.9 fL (78.0-98.0); Mean Platelet Volume 7.5 fL (7.4-10.4); Platelet Count 269 thou/uL (130-400); RBC Distribution Width 18.1 % (11.5-14.5); Red Blood Cell (RBC) Count 3.12 mill/uL (4.70-6.10); White Blood Cell (WBC) Count 17.7 thou/uL (4.8-10.8)
[2020-12-29 06:48] LABS: Band 23 % (5-11); Eosinophils 1 % (0-10); Lymphocytes 8 % (21-51); MDiff Complete? YES; Monocytes 5 % (0-10); Neutrophil 63 % (42-75)
[2020-12-29] MEDS: Amlodipine 10 MG TAB PO SCH (08:57)
[2020-12-29] MEDS: Calcium Acetate 667 MG CAP PO SCH ×3 (08:57→16:33)
[2020-12-29] MEDS: Aspirin 81 mg Enteric Coated Tablet PO SCH (08:57)
[2020-12-29] MEDS: Folic Acid/Vit B Comp W-C PO SCH (08:58)
[2020-12-29] MEDS: Chlorhexidine Gluconate 15 ML UDCUP SSP SCH ×2 (08:58→21:20)
[2020-12-29] MEDS: Heparin 5,000 UNITS/ML VIAL SC SCH ×2 (08:59→21:20)
[2020-12-29] MEDS ORDERED: EPOETIN ALFA-EPBX (ESRD) 4,000 UNIT/ML VIAL SC SCH (14:00)
[2020-12-30] MEDS: Ampicillin/Sulbactam 1.5 GM in Sodium Chloride 0.9% 100 ML IVPB SCH ×2 (01:49→13:06)
[2020-12-30 05:43] LABS: #Eosinphils 0.5 thou/uL (0.0-0.7); #Lymphocytes 1.4 thou/uL (1.20-3.40); #Monocytes 1.4 thou/uL (0.11-0.59); #Neutrophils 11.6 thou/uL (1.40-6.50); %Basophils 0.3 % (0.0-1.0); %Eosinophils 3.2 % (0.0-10.0); %Lymphocytes 9.4 % (21.0-51.0); %Monocytes 9.6 % (0.0-10.0); %Neutrophils 77.5 % (42.0-75.0); Hemoglobin 9.6 g/dL (14.0-18.0); Mean Corpuscular HGB CONC 33.5 g/dL (32.0-36.0); Mean Corpuscular Hemoglobin 32.1 pg (27.0-31.0); Mean Corpuscular Volume 95.7 fL (78.0-98.0); Mean Platelet Volume 7.3 fL (7.4-10.4); Platelet Count 296 thou/uL (130-400); RBC Distribution Width 18.3 % (11.5-14.5); Red Blood Cell (RBC) Count 2.99 mill/uL (4.70-6.10)
[2020-12-30 06:10] LABS: Anion Gap 23 mmol/L (10-20); BUN (Urea Nitrogen) 50 mg/dL (8.4-25.7); Calc. Creatinine Clearance 9 mL/min (70-130); Calcium 10.2 mg/dL (7.8-10.44); Carbon Dioxide 23 mmol/L (22-29); Chloride 95 mmol/L (98-107); Glucose 71 mg/dL (70-105); Potassium 5.2 mmol/L (3.5-5.1); Sodium 136 mmol/L (136-145)
[2020-12-30 08:29] LABS: Vancomycin, Random 15.6 ug/mL (See Comment)
[2020-12-30] MEDS: Calcium Acetate 667 MG CAP PO SCH ×3 (11:40→18:07)
[2020-12-30] MEDS ORDERED: Pantoprazole 40 MG GRANULES PACKET PO SCH (13:00)
[2020-12-30] MEDS ORDERED: Aspirin Chewable 81 MG TAB PO SCH (13:00)
[2020-12-30] MEDS: Heparin 5,000 UNITS/ML VIAL SC SCH ×2 (13:07→20:07)
[2020-12-30] MEDS: Chlorhexidine Gluconate 15 ML UDCUP SSP SCH ×2 (13:07→20:07)
[2020-12-30] MEDS: Folic Acid/Vit B Comp W-C PO SCH (13:14)
[2020-12-30] MEDS ORDERED: Metoprolol Tartrate 50 MG TAB PO SCH (13:15)
[2020-12-30] MEDS: Aspirin 81 mg Enteric Coated Tablet PO SCH (13:51)
[2020-12-30] MEDS: Amlodipine 10 MG TAB PO SCH ×2 (13:52→20:07)
[2020-12-30] MEDS: Metoprolol Tartrate 50 MG TAB PO SCH (20:07)
[2020-12-30] MEDS: Morphine 2 MG/ML VIAL SLOW IVP PRN (20:09)
[2020-12-31] MEDS: Ampicillin/Sulbactam 1.5 GM in Sodium Chloride 0.9% 100 ML IVPB SCH ×2 (00:41→11:54)
[2020-12-31] MEDS: Morphine 2 MG/ML VIAL SLOW IVP PRN (03:46)
[2020-12-31 06:14] LABS: #Eosinphils 0.5 thou/uL (0.0-0.7); #Lymphocytes 1.8 thou/uL (1.20-3.40); #Monocytes 1.5 thou/uL (0.11-0.59); #Neutrophils 9.3 thou/uL (1.40-6.50); %Basophils 0.2 % (0.0-1.0); %Lymphocytes 13.8 % (21.0-51.0); %Monocytes 11.4 % (0.0-10.0); %Neutrophils 70.7 % (42.0-75.0); Hemoglobin 9.9 g/dL (14.0-18.0); Mean Corpuscular HGB CONC 32.4 g/dL (32.0-36.0); Mean Corpuscular Volume 95.9 fL (78.0-98.0); Mean Platelet Volume 7.6 fL (7.4-10.4); Platelet Count 304 thou/uL (130-400); RBC Distribution Width 18.1 % (11.5-14.5); Red Blood Cell (RBC) Count 3.19 mill/uL (4.70-6.10); White Blood Cell (WBC) Count 13.1 thou/uL (4.8-10.8)
[2020-12-31 06:34] LABS: Anion Gap 18 mmol/L (10-20); BUN (Urea Nitrogen) 25 mg/dL (8.4-25.7); Calc. Creatinine Clearance 15 mL/min (70-130); Carbon Dioxide 30 mmol/L (22-29); Chloride 93 mmol/L (98-107); Glucose 102 mg/dL (70-105); Potassium 3.8 mmol/L (3.5-5.1); Sodium 137 mmol/L (136-145)
[2020-12-31] MEDS: HYDROcodone/Acetaminophen 5/325 mg Tablet PO PRN ×2 (06:36→19:07)
[2020-12-31] MEDS: Chlorhexidine Gluconate 15 ML UDCUP SSP SCH ×2 (08:53→21:12)
[2020-12-31] MEDS: Calcium Acetate 667 MG CAP PO SCH ×3 (08:53→17:02)
[2020-12-31] MEDS: Folic Acid/Vit B Comp W-C PO SCH (08:54)
[2020-12-31] MEDS: Pantoprazole 40 MG GRANULES PACKET PO SCH (08:54)
[2020-12-31] MEDS: Heparin 5,000 UNITS/ML VIAL SC SCH ×2 (08:54→21:12)
[2020-12-31] MEDS: Aspirin Chewable 81 MG TAB PO SCH (08:54)
[2020-12-31] MEDS: Metoprolol Tartrate 50 MG TAB PO SCH ×2 (08:54→21:09)
[2020-12-31] MEDS: Amlodipine 10 MG TAB PO SCH (21:09)
[2021-01-01] MEDS: Ampicillin/Sulbactam 1.5 GM in Sodium Chloride 0.9% 100 ML IVPB SCH (01:19)
[2021-01-01] MEDS: HYDROcodone/Acetaminophen 5/325 mg Tablet PO PRN ×2 (01:19→07:58)
[2021-01-01] MEDS: Folic Acid/Vit B Comp W-C PO SCH (07:59)
[2021-01-01] MEDS: Metoprolol Tartrate 50 MG TAB PO SCH (07:59)
[2021-01-01] MEDS: Calcium Acetate 667 MG CAP PO SCH (07:59)
[2021-01-01] MEDS: Aspirin Chewable 81 MG TAB PO SCH (07:59)
[2021-01-01] MEDS: Chlorhexidine Gluconate 15 ML UDCUP SSP SCH (08:01)
[2021-01-01] MEDS: Pantoprazole 40 MG GRANULES PACKET PO SCH (08:01)
[2021-01-01 08:21] VITALS: BP 154/77; TEMP 98.1
[2021-01-01 09:17] LABS: Vancomycin, Random 11.6 ug/mL (See Comment)
[2021-01-01] MEDS: Heparin 5,000 UNITS/ML VIAL SC SCH (10:52)
== END 2021-01-01 10:43 | disposition home or self-care (01) | DRG 853 ==
LOC: ERS 07:03 → SJJU 10:04
PROVIDERS: ADMIT Internal Medicine; ATTEND Internal Medicine
PROC: 0J910ZZ Drainage of Face Subcutaneous Tissue and Fascia, Open Approach (ICD-10-PCS; principal; 2020-12-28)
PROC: 0CTX0Z1 Resection of Lower Tooth, Multiple, Open Approach (ICD-10-PCS; 2020-12-28)
PROC: 0CTW0Z0 Resection of Upper Tooth, Single, Open Approach (ICD-10-PCS; 2020-12-28)
PROC: 0J950ZZ Drainage of Left Neck Subcutaneous Tissue and Fascia, Open Approach (ICD-10-PCS; 2020-12-28)
PROC: 5A1D70Z Performance of Urinary Filtration, Intermittent, Less than 6 Hours Per Day (ICD-10-PCS; 2020-12-30)
DX: A41.9 Sepsis, unspecified organism (principal); N18.6 End stage renal disease; I12.0 Hypertensive chronic kidney disease with stage 5 chronic kidney disease or end stage renal disease; L03.211 Cellulitis of face; N25.81 Secondary hyperparathyroidism of renal origin; L02.11 Cutaneous abscess of neck; K12.2 Cellulitis and abscess of mouth; D63.1 Anemia in chronic kidney disease; F41.9 Anxiety disorder, unspecified; F32.9 Major depressive disorder, single episode, unspecified; K04.1 Necrosis of pulp; F17.220 Nicotine dependence, chewing tobacco, uncomplicated; G47.33 Obstructive sleep apnea (adult) (pediatric); M1A.9XX0 Chronic gout, unspecified, without tophus (tophi); K04.7 Periapical abscess without sinus; Z99.2 Dependence on renal dialysis; Z88.8 Allergy status to other drugs, medicaments and biological substances; Z79.82 Long term (current) use of aspirin; Z79.899 Other long term (current) drug therapy; Z98.890 Other specified postprocedural states; Z99.89 Dependence on other enabling machines and devices; Z89.021 Acquired absence of right finger(s)
CPT/HCPCS: 36415; 70491; 80048; 80053; 80202; 83605; 85025; 87040; 87070; 87205; 90935; 96365; 96366; 96367; 96368; 96375; G0257; J0295; J0692; J1644; J2250; J2270; J2405; J2704; J3010; J3370; J3490; Q5105; Q9967

== ENCOUNTER 2021-01-13 15:46 | Inpatient (IN) | payer MEDICARE ==
[~2021-01-13 15:46] MED LIST changes: -Heparin 10,000 UNITS/ 10 ML VIAL ONE; +Iopamidol-370 76% 500 ML 1 ML ONE
[2021-01-13] MEDS ORDERED: Calcium Chloride 1 GM/10 ML Abboject SYRINGE ONE (15:49)
[2021-01-13] MEDS ORDERED: Sodium Bicarb 50 MEQ/50 ML Abboject 8.4% SYRINGE ONE (15:49)
[2021-01-13] MEDS ORDERED: Fentanyl 100 MCG/2 ML VIAL ONE (15:54)
[2021-01-13] MEDS ORDERED: Vancomycin 1 GM/200 ML BAG ONE (16:00)
[2021-01-13] MEDS ORDERED: Cefepime 2 GM VIAL ONE (16:00)
[2021-01-13] MEDS ORDERED: Midazolam HCl 5 mg/ml Vial ONE (16:01)
[2021-01-13] MEDS ORDERED: Propofol 1,000 MG/100 ML VIAL IV ONE (16:03)
[2021-01-13 16:06] LABS: Actual Bicarbonate (HCO3a) 20.2 mEq/L (22-28); Analyzer IN Cardio ER; Base Excess (BEa) -9.7 mEq/L (-2.0 to +3.0); Calcium, Ionized (arterial) 1.45 mmol/L (1.12-1.30); Carboxyhemoglobin (COHb) 0.6 gm% (0.0-3.0); Hemoglobin (Hb) 11.3 g/dL (14.0-18.0); O2 Tension (PaO2), arterial 175.5 mmHg (80.0-100.0); Potassium - ABG Lab 5.09 mmol/L (3.70-5.30)
[2021-01-13 16:07] LABS: CO2 Tension 64.7 mmHg (35.0-45.0); pH, Arterial 7.11 (7.35-7.45)
[2021-01-13 16:08] LABS: ALV-art Gradient 456.625 mmHg (0-20); Puncture Site RBA
[2021-01-13] MEDS ORDERED: Fentanyl CADD 100 ML IV SCH ×2 (16:15→19:30)
[2021-01-13 16:22] LABS: Hemoglobin 11.3 g/dL (14.0-18.0); Mean Corpuscular HGB CONC 33.7 g/dL (32.0-36.0); Mean Corpuscular Hemoglobin 32.8 pg (27.0-31.0); Mean Corpuscular Volume 97.4 fL (78.0-98.0); Mean Platelet Volume 8.1 fL (7.4-10.4); Platelet Count 397 thou/uL (130-400); Red Blood Cell (RBC) Count 3.43 mill/uL (4.70-6.10); White Blood Cell (WBC) Count 21.4 thou/uL (4.8-10.8)
[2021-01-13 16:36] LABS: INR-International Normal Ratio 1.1; Prothrombin Time 14.3 sec (12.0-14.7)
[2021-01-13 16:37] LABS: PTT 30.3 sec (22.9-36.1)
[2021-01-13 16:41] LABS: ALT (SGPT) 48 U/L (8-55); AST (SGOT) 62 U/L (5-34); Albumin 3.6 g/dL (3.5-5.0); Alkaline Phosphatase 223 U/L (40-110); Anion Gap 30 mmol/L (10-20); BUN (Urea Nitrogen) 43 mg/dL (8.4-25.7); Bilirubin, Total 0.3 mg/dL (0.2-1.2); Calc. Creatinine Clearance 0 mL/min (70-130); Calcium 11.7 mg/dL (7.8-10.44); Carbon Dioxide 16 mmol/L (22-29); Chloride 100 mmol/L (98-107); Globulin 4.2 g/dL (2.4-3.5); Glucose 173 mg/dL (70-105); Potassium 5.3 mmol/L (3.5-5.1); Protein, Total 7.8 g/dL (6.0-8.3); Sodium 141 mmol/L (136-145)
[2021-01-13 16:42] LABS: Acetaminophen Less than 6.0 mcg/mL (10.0-30.0); Alcohol Less than 10 mg/dL (Less than 10); Magnesium 3.5 mg/dL (1.6-2.6); Salicylate Less than 8.0 mg/dL (15.0-30.0)
[2021-01-13 16:50] LABS: Anisocytosis SLIGHT = 6-15 cells (100X) (0-5/hpf); Band 14 % (5-11); Lymphocytes 19 % (21-51); MDiff Complete? YES; Monocytes 7 % (0-10); Neutrophil 60 % (42-75); Platelet Morphology Comment Appears Adequate
[2021-01-13 17:04] LABS: CKMB 2.5 ng/mL (0-6.6)
[2021-01-13 17:41] LABS: SARS-CoV-2 NAA Rapid Test Not Detected (NotDetected)
[2021-01-13] MEDS ORDERED: Ondansetron PF 4 MG/2 ML Vial IVP PRN (18:57)
[2021-01-13] MEDS ORDERED: Labetalol HCl 100 MG/20 ML VIAL SLOW IVP PRN (18:58)
[2021-01-13] MEDS ORDERED: hydrALAZINE 20 MG/ML VIAL SLOW IVP PRN (18:58)
[2021-01-13] MEDS ORDERED: Ventilator Sedation Protocol 1 EACH FS SCH (19:00)
[2021-01-13 19:30] LABS: Lactic Acid 5.1 mmol/L (0.5-2.2)
[2021-01-13] MEDS ORDERED: Morphine 2 MG/ML VIAL SLOW IVP PRN (19:30)
[2021-01-13] MEDS ORDERED: DISCONTINUE PREVIOUS NARCOTIC PAIN MEDICATIONS AND BENZODIAZEPINES FS SCH (19:30)
[2021-01-13] MEDS ORDERED: Fentanyl BOLUS 250 ML IVPB PRN (19:30)
[2021-01-13] MEDS ORDERED: Propofol BOLUS 1,000 MG/100 ML VIAL IV PRN (19:30)
[2021-01-13] MEDS ORDERED: Propofol 1,000 MG/100 ML VIAL IV PRN (19:30)
[2021-01-13 19:37] LABS: Troponin I 0.119 ng/mL (< 0.028)
[2021-01-13] MEDS ORDERED: Vancomycin HCl 500 MG in Sodium Chloride 0.9% 100 ML IVPB SCH ×2 (20:45→22:00)
[2021-01-13] MEDS ORDERED: Vancomycin HCl 1.25 GM in Sodium Chloride 0.9% 250 ML 250 ML IVPB SCH (20:45)
[2021-01-13] MEDS ORDERED: HOLD VANCOMYCIN FOR LEVEL >20 FS SCH (20:45)
[2021-01-13] MEDS ORDERED: Vancomycin 1 GM in Premix Bag 1 BAG IVPB SCH ×2 (20:45→21:00)
[2021-01-13] MEDS ORDERED: Vancomycin HCl 750 MG in Sodium Chloride 0.9% 250 ML 250 ML IVPB SCH (20:45)
[2021-01-13 22:52] LABS: Troponin I 0.255 ng/mL (< 0.028)
[2021-01-13] MEDS ORDERED: Lorazepam 2 MG/ML VIAL ONE (23:58)
[2021-01-14] MEDS: Lorazepam 2 MG/ML VIAL SLOW IVP PRN ×3 (00:08→17:06)
[2021-01-14] MEDS ORDERED: Vancomycin HCl 500 MG VIAL ONE (00:35)
[2021-01-14] MEDS ORDERED: Nitroglycerin 2% Ointment 1 INCH/1 GM Packet ONE ×2 (00:46→16:32)
[2021-01-14] MEDS: Nitroglycerin 2% Ointment 1 INCH/1 GM Packet TOP SCH ×3 (00:48→16:48)
[2021-01-14] MEDS ORDERED: Propofol 1,000 MG/100 ML VIAL IV ONE ×3 (02:06→17:57)
[2021-01-14] MEDS ORDERED: Lorazepam 2 MG/ML VIAL ONE ×2 (02:10→17:02)
[2021-01-14] MEDS ORDERED: Acetaminophen 650 MG Suppository PR PRN (02:25)
[2021-01-14] MEDS ORDERED: Acetaminophen 650 MG Suppository ONE ×2 (02:47→17:08)
[2021-01-14 07:47] LABS: Hemoglobin 8.8 g/dL (14.0-18.0); Mean Corpuscular HGB CONC 32.9 g/dL (32.0-36.0); Mean Corpuscular Hemoglobin 31.2 pg (27.0-31.0); Mean Corpuscular Volume 94.7 fL (78.0-98.0); Mean Platelet Volume 7.9 fL (7.4-10.4); Platelet Count 255 thou/uL (130-400); Red Blood Cell (RBC) Count 2.84 mill/uL (4.70-6.10); White Blood Cell (WBC) Count 20.7 thou/uL (4.8-10.8)
[2021-01-14 08:07] LABS: Band 20 % (5-11); Hypochromia SLIGHT = 6-15 cells (100X) (0-5/hpf); Lymphocytes 9 % (21-51); MDiff Complete? YES; Monocytes 1 % (0-10); Neutrophil 70 % (42-75); Platelet Morphology Comment Appears Adequate; Polychromasia SLIGHT = 2-3 cells (100X) (0-2/hpf)
[2021-01-14 08:33] LABS: HBSAg Index 0.23 S/CO (0-0.99); Hep B Surf Ag Non-Reactive S/CO (NonReactive)
[2021-01-14 09:39] LABS: Actual Bicarbonate (HCO3a) 23.7 mEq/L (22-28); Analyzer IN Cardio ER; Base Excess (BEa) 1.1 mEq/L (-2.0 to +3.0); CO2 Tension 30.5 mmHg (35.0-45.0); Calcium, Ionized (arterial) 1.09 mmol/L (1.12-1.30); Carboxyhemoglobin (COHb) 0.3 gm% (0.0-3.0); Hemoglobin (Hb) 10.3 g/dL (14.0-18.0); O2 Tension (PaO2), arterial 291.6 mmHg (80.0-100.0); Potassium - ABG Lab 5.93 mmol/L (3.70-5.30); pH, Arterial 7.51 (7.35-7.45)
[2021-01-14 09:41] LABS: Puncture Site RBA
[2021-01-14 09:42] LABS: ALV-art Gradient 26.775 mmHg (0-20)
[2021-01-14 09:46] LABS: Anion Gap 22 mmol/L (10-20); BUN (Urea Nitrogen) 58 mg/dL (8.4-25.7); Calc. Creatinine Clearance 10 mL/min (70-130); Carbon Dioxide 25 mmol/L (22-29); Chloride 98 mmol/L (98-107); Glucose 99 mg/dL (70-105); Potassium 6.1 mmol/L (3.5-5.1); Sodium 139 mmol/L (136-145)
[2021-01-14] MEDS ORDERED: EPOETIN ALFA-EPBX (ESRD) 4,000 UNIT/ML VIAL SC SCH (12:00)
[2021-01-14] MEDS ORDERED: Albumin 25% 25 GM/100 ML BOT IVPB SCH (12:15)
[2021-01-14] MEDS ORDERED: Cefepime 0.5 GM in Sodium Chloride 0.9% 100 ML IVPB SCH (16:00)
[2021-01-15] MEDS ORDERED: Albumin 25% 25 GM/100 ML BOT IVPB SCH (00:30)
[2021-01-15] MEDS: Nitroglycerin 2% Ointment 1 INCH/1 GM Packet TOP SCH ×2 (01:41→06:06)
[2021-01-15 04:15] LABS: Anion Gap 20 mmol/L (10-20); BUN (Urea Nitrogen) 34 mg/dL (8.4-25.7); Calc. Creatinine Clearance 15 mL/min (70-130); Calcium 9.5 mg/dL (7.8-10.44); Carbon Dioxide 27 mmol/L (22-29); Chloride 98 mmol/L (98-107); Glucose 98 mg/dL (70-105); Potassium 5.2 mmol/L (3.5-5.1); Sodium 140 mmol/L (136-145); Vancomycin, Random 19.5 ug/mL (See Comment)
[2021-01-15 04:23] LABS: Hemoglobin 8.5 g/dL (14.0-18.0); Mean Corpuscular HGB CONC 34.2 g/dL (32.0-36.0); Mean Corpuscular Hemoglobin 32.5 pg (27.0-31.0); Mean Platelet Volume 7.9 fL (7.4-10.4); Platelet Count 274 thou/uL (130-400); RBC Distribution Width 19.1 % (11.5-14.5); Red Blood Cell (RBC) Count 2.62 mill/uL (4.70-6.10); White Blood Cell (WBC) Count 17.5 thou/uL (4.8-10.8)
[2021-01-15 04:32] LABS: Band 20 % (5-11); Lymphocytes 8 % (21-51); MDiff Complete? YES; Monocytes 5 % (0-10); Neutrophil 65 % (42-75)
[2021-01-15 05:14] VITALS: BMI 30.6
[2021-01-15 07:33] VITALS: TEMP 101.6
[2021-01-15 10:39] VITALS: BP 180/99
[2021-01-15] MEDS ORDERED: Morphine 10 MG/ML VIAL SLOW IVP SCH (11:00)
[2021-01-15] MEDS ORDERED: Morphine 10 MG/ML VIAL SLOW IVP PRN (12:03)
[2021-01-15] MEDS ORDERED: Cefepime 0.5 GM, Admixture Fee 1 EACH in Sodium Chloride 0.9% 100 ML IVPB SCH (16:00)
== END 2021-01-15 12:57 | disposition expired | DRG 208 ==
LOC: ERS 15:46 → ERHOLD 17:13 → CCU 01-15
PROVIDERS: ADMIT Internal Medicine; ATTEND Internal Medicine
PROC: 5A1945Z Respiratory Ventilation, 24-96 Consecutive Hours (ICD-10-PCS; principal; 2021-01-13)
PROC: 06HY33Z Insertion of Infusion Device into Lower Vein, Percutaneous Approach (ICD-10-PCS; 2021-01-13)
PROC: 0D9670Z Drainage of Stomach with Drainage Device, Via Natural or Artificial Opening (ICD-10-PCS; 2021-01-13)
PROC: 5A1D70Z Performance of Urinary Filtration, Intermittent, Less than 6 Hours Per Day (ICD-10-PCS; 2021-01-13)
DX: J69.0 Pneumonitis due to inhalation of food and vomit (principal); J96.01 Acute respiratory failure with hypoxia; J96.02 Acute respiratory failure with hypercapnia; N18.6 End stage renal disease; I12.0 Hypertensive chronic kidney disease with stage 5 chronic kidney disease or end stage renal disease; G93.1 Anoxic brain damage, not elsewhere classified; E87.2 Acidosis; I24.8 Other forms of acute ischemic heart disease; Z66 Do not resuscitate; I46.8 Cardiac arrest due to other underlying condition; Z20.822 Contact with and (suspected) exposure to COVID-19; D63.1 Anemia in chronic kidney disease; F41.9 Anxiety disorder, unspecified; M10.9 Gout, unspecified; E87.5 Hyperkalemia; E87.79 Other fluid overload; G93.89 Other specified disorders of brain; Z99.2 Dependence on renal dialysis; Z79.82 Long term (current) use of aspirin; Z79.899 Other long term (current) drug therapy; Z88.8 Allergy status to other drugs, medicaments and biological substances; Z91.19 Patient's noncompliance with other medical treatment and regimen; Z89.021 Acquired absence of right finger(s); Z98.890 Other specified postprocedural states; Z78.1 Physical restraint status; F17.220 Nicotine dependence, chewing tobacco, uncomplicated; R57.8 Other shock
CPT/HCPCS: 0240U; 36415; 36416; 36556; 36600; 51702; 70450; 70491; 71045; 71275; 74177; 80048; 80053; 80202; 80307; 82553; 82805; 83605; 83735; 83880; 84439; 84443; 84484; 85007; 85025; 85027; 85610; 85730; 87340; 90935; 93005; 94002; 94003; 95816; 95819; 95957; 96365; 96367; 96368; 96375; 99292; G0257; J0692; J2060; J2250; J2270; J2704; J3010; J3370; J3490; P9047; Q5105; Q9967